=== PATIENT | male | born 1970 | race Caucasian/White ===

== ENCOUNTER 2018-07-11 06:24 | Day surgery (SDC) | payer OTHER ==
--- NOTE | 2018-07-04 09:54 | HP ---
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 He had been advised to have surgery in the past but had never presented for such. He was actually seen in consultation in our practice four years ago and was advised surgery. However, he never moved in the direction of definitive repair. More recently, the hernia has obviously become larger in size and associated with more discomfort. He has opted at this juncture to undergo formal repair with mesh. The patient has no underlying GI, or respiratory complaints to suggest a predisposition to hernia formation otherwise. PAST MEDICAL HISTORY: Significant for hypertension and hypercholesterolemia. No history of heart disease, diabetes, respiratory, renal or hepatic insufficiency. PAST SURGICAL HISTORY: Nil. ALLERGIES: None known. REGULAR MEDICATIONS: None. SOCIAL HISTORY: Negative tobacco. Occasional alcohol. FAMILY HISTORY: Nil. REVIEW OF SYSTEMS: Nil. PHYSICAL EXAMINATION: The patient was examined in the erect and supine positions. The abdomen is obese, soft and nontender. There is an obvious protuberant hernia involving the central ring of the abdomen and the entire umbilicus, as well as an additional bulge in the supraumbilical midline. All of this appears to represent one rather large process. The hernia is not reducible. IMPRESSION: Long-standing, chronically incarcerated abdominal wall hernia. PLAN: Open repair of long-standing, chronically incarcerated ventral hernia with mesh and bilateral component separation. Indications, alternatives and possible complications were reviewed. Issues relating to the mesh, including but not limited to infection, migration and neuritis, have been reviewed. Consent was obtained. JJ MUKHERJEE M.D. [id number] MTDD
[2018-07-11] MEDS ORDERED: TAMSULOSIN HCL 0.4 MG CAP.ER.24H (FP) ONE (06:51)
[2018-07-11] MEDS ORDERED: ceFAZolin SODIUM 1 GM VIAL ONE (06:52)
[2018-07-11 07:00] VITALS: BP 151/95; PULSE 75; TEMP 98.9
[2018-07-11 07:13] VITALS: BMI 40.1
[2018-07-11] MEDS ORDERED: DEXAMETHASONE SOD PHOSPHATE 4 MG/1 ML VIAL ONE (07:24)
[2018-07-11] MEDS ORDERED: PROPOFOL 20 ML ONE (07:24)
[2018-07-11] MEDS ORDERED: fentaNYL CITRATE 250 MCG/5 ML VIAL ONE (07:24)
[2018-07-11] MEDS ORDERED: ROCURONIUM BROMIDE 50 MG/5 ML VIAL ONE (07:24)
[2018-07-11] MEDS ORDERED: SUCCINYLCHOLINE CHLORIDE 200 MG/10 ML VIAL ONE (07:24)
[2018-07-11] MEDS ORDERED: LIDOCAINE HCL/PF 2% SDV 5ML VIAL ONE (07:24)
[2018-07-11] MEDS ORDERED: ONDANSETRON 4 MG/2 ML VIAL ONE (07:24)
[2018-07-11] MEDS ORDERED: DESFLURANE GAS 240 ML BOTTLE IH ONE (07:28)
== END 2018-07-11 08:00 | disposition home or self-care (01) ==
LOC: JASU-SURG 06:24
PROVIDERS: ATTEND Surgery
PROC: 3E013GC Introduction of Other Therapeutic Substance into Subcutaneous Tissue, Percutaneous Approach (ICD-10-PCS; principal; 2018-07-11)
DX: Z53.8 Procedure and treatment not carried out for other reasons (principal)